=== PATIENT | male | born 1985 ===

== ENCOUNTER 2021-05-13 17:05 | Emergency (ER) | payer SELFPAY ==
--- NOTE | 2021-05-13 17:30 | EDM.PDOC ---
<Grover Garner - Last Filed: 05/13/21 18:33> ED HPI GENERAL MEDICAL PROBLEM - General Chief Complaint: Chest Pain Stated Complaint: 96.0*, CHEST PAINS, FEVER Time Seen by Provider: 05/13/21 17:30 Source of Information: Reports: Patient, RN, RN Notes Reviewed History Limitations: Reports: No Limitations - History of Present Illness INITIAL COMMENTS - FREE TEXT/NARRATIVE: Pt presents to ER from home by POV with c/o onset of sharp upper left chest pain at 1430HRS today. Admits to about 3 days of not feeling well with fever sensation, fatigue, and a headache. Pt states he was exposed to COVID about 3 weeks ago, but isn't sure if he has been exposed since then. Denies shortness of breath, abdominal pain, or diarrhea. Denies Hx of CAD/CA/angina, DM, asthma, or compromised immune system. Onset: Today, Sudden Onset Date: 05/13/21 Onset Time: 14:30 Duration: Constant, Waxing/Waning Location: Reports: Chest Quality: Reports: Sharp Severity: Moderate Improves with: Reports: None Worsens with: Reports: None Context: Reports: Sick Contact Associated Symptoms: Reports: No Other Symptoms Left Chest Pain Score (Numeric/FACES): 5 - Related Data Allergies Allergy/AdvReac Type Severity Reaction Status Date / Time No Known Allergies Allergy Verified 05/13/21 17:45 Home Meds: Home Meds . [No Known Home Meds] 05/13/21 [History] Past Medical History HEENT History: Reports: Impaired Vision Endocrine/Metabolic History: Reports: Obesity/BMI 30+ Social & Family History - Family History Family Medical History: No Pertinent Family History Cardiac: Reports: High Cholesterol (Father), Hypertension (Father) - Tobacco Use Tobacco Use Status *Q: Never Tobacco User - Living Situation & Occupation Living situation: Reports: with Family ED ROS GENERAL - Review of Systems Review Of Systems: Comprehensive ROS is negative, except as noted in HPI. ED EXAM, GENERAL - Physical Exam Exam: See Below Exam Limited By: No Limitations General Appearance: Alert, WD/WN, No Apparent Distress, Obese Eye Exam: Bilateral Eye: Normal Inspection Ears: Normal External Exam, Hearing Grossly Normal Nose: Normal Inspection, Normal Mucosa, No Blood Throat/Mouth: Normal Inspection, Normal Lips, Normal Teeth, Normal Gums, Normal Oropharynx, Normal Voice, No Airway Compromise Head: Atraumatic, Normocephalic Neck: Normal Inspection, Supple, Non-Tender, Full Range of Motion. No: Lymphadenopathy (L), Lymphadenopathy (R) Respiratory/Chest: No Respiratory Distress, Lungs Clear, Normal Breath Sounds, No Accessory Muscle Use, Chest Non-Tender Cardiovascular: Normal Peripheral Pulses, Regular Rate, Rhythm, No Edema, No Murmur, Tachycardia GI/Abdominal: Normal Bowel Sounds, Soft, Non-Tender, Other (Benign obese abdomen) Back Exam: Normal Inspection, Full Range of Motion Extremities: Normal Inspection, Non-Tender, No Pedal Edema, Normal Capillary Refill Neurological: Alert, Oriented, CN II-XII Intact, Normal Cognition, No Motor/Sensory Deficits Psychiatric: Normal Affect, Anxious Skin Exam: Warm, Intact, Normal Color, No Rash, Diaphoretic #1 Interpretation EKG Date: 05/13/21 Time: 17:28 Rhythm: Other (SR) Rate (Beats/Min): 99 [place]: Normal P-Wave: Present QRS: Normal ST-T: Normal QT: Normal Comparison: NA - No Prior EKG Course - Re-Assessments/Exams Free Text/Narrative Re-Assessment/Exam: 05/13/21 19:00 Care of pt transferred to Michell BARROW at shift change. Departure - Departure Disposition: Home, Self-Care 01 Clinical Impression: COVID-19 virus infection Instructions: COVID-19: How to Protect Yourself and Others - CDC, COVID-19: What to Do If You Are Sick- CDC (09/20/2020) Forms: ED Department Discharge Additional Instructions: encourage fluids tylenol 500mg every 4 hours as needed for fever/discomfort humidifier rest quarantine robitussin or muccinex type product per label instruction for cough follow up if severe difficulty breathing good handwashing <Michell Stephens - Last Filed: 05/13/21 19:54> Course - Vital Signs Last Recorded V/S: Last Vital Signs Temp 97.8 F 05/13/21 17:29 Pulse 106 H 05/13/21 17:29 Resp 22 H 05/13/21 17:29 BP 151/97 H 05/13/21 17:29 Pulse Ox 95 05/13/21 17:29 - Orders/Labs/Meds Orders: Active Orders 24 hr Category Date Time Status Peripheral IV Care [RC] . DIRECTED Care 05/13/21 17:40 Active CULTURE BLOOD [BC] Stat Lab 05/13/21 18:20 Received CULTURE BLOOD [BC] Stat Lab 05/13/21 18:25 Received Sodium Chloride 0.9% [Saline Flush] Med 05/13/21 17:40 Active 10 ml FLUSH ASDIRECTED PRN Blood Culture x2 Reflex Set [OM.PC] Stat Oth 05/13/21 17:38 Ordered Peripheral IV Insertion Adult [OM.PC] Stat Ot 05/13/21 17:39 Ordered Medication Orders Sodium Chloride (Sodium Chloride 0.9% 10 Ml Syringe) 10 ml FLUSH ASDIRECTED PRN PRN Reason: Keep Vein Open Last Admin: 05/13/21 17:59 Dose: 10 ml Documented by: PADMAJA Labs: Laboratory Tests 05/13/21 05/13/21 05/13/21 Range/Units 17:27 17:27 17:27 WBC 3.8 L (5.0-10.0) 10^3/uL RBC 5.30 (4.6-6.2) 10^6/uL Hgb 14.7 (14.0-18.0) g/dL Hct 41.9 (40.0-54.0) % MCV 79.1 L (80-100) fL MCH 27.7 (27.0-34.0) pg MCHC 35.1 H (33.0-35.0) g/dL Plt Count 120 L (150-450) 10^3/uL Neut % (Auto) 63.0 (42.2-75.2) % Lymph % (Auto) 30.6 (20.5-50.1) % [place] % (Auto) 6.1 (2-8) % Eos % (Auto) 0.3 L (1.0-3.0) % Baso % (Auto) 0.0 (0.0-1.0) % PT (9.0-12.0) SEC INR (0.9-1.2) APTT (22.0-34.0) SEC D-Dimer, Quantitative 580 H (0-400) ng/mL Sodium 130 L (136-145) mmol/L Potassium 3.3 L (3.5-5.1) mmol/L Chloride 92 L (98-107) mmol/L Carbon Dioxide 29 (21-32) mmol/L Anion Gap 12.3 (7-13) mEq/L BUN 12 (7-18) mg/dL Creatinine 1.04 (0.70-1.30) mg/dL Est Cr Clr Drug Dosing 90.32 mL/min Estimated GFR (MDRD) > 60 BUN/Creatinine Ratio 11.5 (No establ ref range) Glucose 119 H (70-99) mg/dL Lactic Acid (0.4-2.0) mmol/L Calcium 7.8 L (8.5-10.1) mg/dL Ferritin (26-388) mg/mL Total Bilirubin 0.3 (0.2-1.0) mg/dL AST 44 H (15-37) U/L ALT 41 (16-63) U/L Alkaline Phosphatase 73 (46-116) U/L Troponin I High Sens 16 (<=76) pg/mL C-Reactive Protein 10.2 H (0.0-0.9) mg/dL Total Protein 7.9 (6.4-8.2) g/dL Albumin 3.5 (3.4-5.0) g/dL Globulin 4.4 Albumin/Globulin Ratio 0.8 Influenza Type A RNA (NEGATIVE) Influenza Type B RNA (NEGATIVE) SARS-CoV-2 RNA (BETTY) (NEGATIVE) 05/13/21 05/13/21 05/13/21 Range/Units 17:27 17:27 17:27 WBC (5.0-10.0) 10^3/uL RBC (4.6-6.2) 10^6/uL Hgb (14.0-18.0) g/dL Hct (40.0-54.0) % MCV (80-100) fL MCH (27.0-34.0) pg MCHC (33.0-35.0) g/dL Plt Count (150-450) 10^3/uL Neut % (Auto) (42.2-75.2) % Lymph % (Auto) (20.5-50.1) % [place] % (Auto) (2-8) % Eos % (Auto) (1.0-3.0) % Baso % (Auto) (0.0-1.0) % PT 10.8 (9.0-12.0) SEC INR 1.1 (0.9-1.2) APTT 26.1 (22.0-34.0) SEC D-Dimer, Quantitative (0-400) ng/mL Sodium (136-145) mmol/L Potassium (3.5-5.1) mmol/L Chloride (98-107) mmol/L Carbon Dioxide (21-32) mmol/L Anion Gap (7-13) mEq/L BUN (7-18) mg/dL Creatinine (0.70-1.30) mg/dL Est Cr Clr Drug Dosing mL/min Estimated GFR (MDRD) BUN/Creatinine Ratio (No establ ref range) Glucose (70-99) mg/dL Lactic Acid 0.8 (0.4-2.0) mmol/L Calcium (8.5-10.1) mg/dL Ferritin 366 (26-388) mg/mL Total Bilirubin (0.2-1.0) mg/dL AST (15-37) U/L ALT (16-63) U/L Alkaline Phosphatase (46-116) U/L Troponin I High Sens (<=76) pg/mL C-Reactive Protein (0.0-0.9) mg/dL Total Protein (6.4-8.2) g/dL Albumin (3.4-5.0) g/dL Globulin Albumin/Globulin Ratio Influenza Type A RNA (NEGATIVE) Influenza Type B RNA (NEGATIVE) SARS-CoV-2 RNA (BETTY) (NEGATIVE) 05/13/21 Range/Units 17:35 WBC (5.0-10.0) 10^3/uL RBC (4.6-6.2) 10^6/uL Hgb (14.0-18.0) g/dL Hct (40.0-54.0) % MCV (80-100) fL MCH (27.0-34.0) pg MCHC (33.0-35.0) g/dL Plt Count (150-450) 10^3/uL Neut % (Auto) (42.2-75.2) % Lymph % (Auto) (20.5-50.1) % [place] % (Auto) (2-8) % Eos % (Auto) (1.0-3.0) % Baso % (Auto) (0.0-1.0) % PT (9.0-12.0) SEC INR (0.9-1.2) APTT (22.0-34.0) SEC D-Dimer, Quantitative (0-400) ng/mL Sodium (136-145) mmol/L Potassium (3.5-5.1) mmol/L Chloride (98-107) mmol/L Carbon Dioxide (21-32) mmol/L Anion Gap (7-13) mEq/L BUN (7-18) mg/dL Creatinine (0.70-1.30) mg/dL Est Cr Clr Drug Dosing mL/min Estimated GFR (MDRD) BUN/Creatinine Ratio (No establ ref range) Glucose (70-99) mg/dL Lactic Acid (0.4-2.0) mmol/L Calcium (8.5-10.1) mg/dL Ferritin (26-388) mg/mL Total Bilirubin (0.2-1.0) mg/dL AST (15-37) U/L ALT (16-63) U/L Alkaline Phosphatase (46-116) U/L Troponin I High Sens (<=76) pg/mL C-Reactive Protein (0.0-0.9) mg/dL Total Protein (6.4-8.2) g/dL Albumin (3.4-5.0) g/dL Globulin Albumin/Globulin Ratio Influenza Type A RNA Negative (NEGATIVE) Influenza Type B RNA Negative (NEGATIVE) SARS-CoV-2 RNA (BETTY) Positive H (NEGATIVE) Meds: Medications Generic Name Dose Route Start Last Admin Trade Name Freq PRN Reason Stop Dose Admin Sodium Chloride 10 ml 05/13/21 17:40 05/13/21 17:59 Sodium Chloride 0.9% 10 Ml Syringe FLUSH 10 ml ASDIRECTED PRN Administration Keep Vein Open - Re-Assessments/Exams Free Text/Narrative Re-Assessment/Exam: 05/13/21 19:54 Discharge instructions reviewed with patient and sister. Departure - Departure Time of Disposition: 19:44 Condition: Good Sepsis Event Note (ED) - Focused Exam Vital Signs: Vital Signs Temp Pulse Resp BP Pulse Ox 05/13/21 17:29 97.8 F 106 H 22 H 151/97 H 95
[2021-05-13] MEDS ORDERED: Sodium Chloride 0.9% 10 ML Syringe FLUSH PRN (17:40)
[2021-05-13 18:03] LABS: PTT,PARTIAL THROMBOPLSTIN TIME 26.1 SEC (22.0-34.0)
[2021-05-13 18:13] LABS: ANION GAP 12.3 mEq/L (7-13); CHLORIDE,CL 92 mmol/L (98-107); SODIUM,NA 130 mmol/L (136-145)
[2021-05-13 18:28] LABS: CORONAVIRUS COVID-19 NAA POSITIVE (NEGATIVE)
--- NOTE | 2021-05-13 19:33 | CR ---
PROCEDURE INFORMATION: Exam: XR Chest Exam date and time: 05/13/2021 7:01 PM Age: 35 years old Clinical indication: Cough; Additional info: Covid infection, chest pain TECHNIQUE: Imaging protocol: XR of the chest. Views: 1 view. COMPARISON: No relevant prior studies available. FINDINGS: Lungs: Unremarkable. No consolidation. Pleural spaces: Unremarkable. No pleural effusion. No pneumothorax. Heart/Mediastinum: Unremarkable. No cardiomegaly. Bones/joints: Unremarkable. IMPRESSION: No acute findings.
== END 2021-05-13 20:02 | disposition home or self-care (01) ==
LOC: DL.ED 17:05
DX: U07.1 COVID-19 (principal); E66.9 Obesity, unspecified; Z68.38 Body mass index [BMI] 38.0-38.9, adult
CPT/HCPCS: 0240U; 36415; 71045; 80053; 82728; 83605; 84484; 85025; 85379; 85610; 85730; 86140; 87040; 93005; 99285

== ENCOUNTER 2021-06-07 13:31 | Inpatient (IN) | payer BC ==
--- NOTE | 2021-06-07 15:32 | EDM.PDOC ---
ED HPI GENERAL MEDICAL PROBLEM - General Chief Complaint: Lower Extremity Injury/Pain Stated Complaint: SWOLLEN CALF Time Seen by Provider: 06/07/21 15:32 Source of Information: Reports: Patient, Old Records, RN, RN Notes Reviewed History Limitations: Reports: No Limitations - History of Present Illness INITIAL COMMENTS - FREE TEXT/NARRATIVE: Pt presents to ER by POV with c/o swelling and tenderness to the left lower leg that began about one week ago. Pt states that a friend of his looked at it and told him could have a blood clot that could be dangerous. Pt has Hx of Dev. D elay and is very anxious about the possibility of having a dangerous condition. He denies injury. 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 He had COVID diagnosed on 05/13/21, but recovered without any lasting symptoms. He is aware that COVID is related to blood clots, and that concerns him. He denies chest pain, shortness of breath, cough, or hemoptysis. Denies any prior Hx of DVT/PE. He is unaware of any family history of blood clots or clotting disorder. Onset: Gradual Duration: Week(s): (1), Constant Location: Reports: Lower Extremity, Left Quality: Reports: Ache, Pressure Severity: Moderate Improves with: Reports: None Worsens with: Reports: Other (Standing/walking/weight bearing) Associated Symptoms: Reports: No Other Symptoms - Related Data Allergies Allergy/AdvReac Type Severity Reaction Status Date / Time No Known Allergies Allergy Verified 06/07/21 15:37 Home Meds: Home Meds . [No Known Home Meds] 05/13/21 [History] Past Medical History HEENT History: Reports: Impaired Vision Cardiovascular History: Reports: None Respiratory History: Reports: None Gastrointestinal History: Reports: None Genitourinary History: Reports: None Musculoskeletal History: Reports: None Neurological History: Reports: None Psychiatric History: Reports: Anxiety Endocrine/Metabolic History: Reports: Obesity/BMI 30+ Hematologic History: Reports: None Immunologic History: Reports: None Oncologic (Cancer) History: Reports: None Dermatologic History: Reports: None - Infectious Disease History Infectious Disease History: Reports: Novel Coronavirus (May 2021) - Past Surgical History Head Surgeries/Procedures: Reports: None Social & Family History - Family History Family Medical History: No Pertinent Family History Cardiac: Reports: High Cholesterol (Father), Hypertension (Father) - Tobacco Use Tobacco Use Status *Q: Never Tobacco User - Caffeine Use Caffeine Use: Reports: Coffee, Energy Drinks, Soda - Alcohol Use Alcohol Use History: No - Recreational Drug Use Recreational Drug Use: No - Living Situation & Occupation Living situation: Reports: Single, with Family Occupation: Employed Review of Systems - Review of Systems Review Of Systems: Comprehensive ROS is negative, except as noted in HPI. ED EXAM, GENERAL - Physical Exam Exam: See Below Exam Limited By: No Limitations General Appearance: Alert, WD/WN, No Apparent Distress, Anxious Nose: Normal Inspection, No Blood Throat/Mouth: Normal Lips, Normal Voice, No Airway Compromise Head: Atraumatic, Normocephalic Neck: Normal Inspection Respiratory/Chest: No Respiratory Distress, Lungs Clear, Normal Breath Sounds, No Accessory Muscle Use, Chest Non-Tender Cardiovascular: Normal Peripheral Pulses, Regular Rate, Rhythm, Tachycardia GI/Abdominal: Normal Bowel Sounds, Soft, Non-Tender Back Exam: Normal Inspection Extremities: Normal Range of Motion, Normal Capillary Refill, Pedal Edema (Mild at left foot only.), Dallin's Sign (Positive on left.), Increased Warmth (Left lower leg from ankle to knee). No: Joint Swelling, Arm Pain, Mottled, Pallor, Redness Neurological: Alert, Oriented, No Motor/Sensory Deficits Psychiatric: Anxious Skin Exam: Warm, Dry, Intact, Normal Color, No Rash #1 Interpretation EKG Date: 06/07/21 Time: 17:18 Rhythm: Other (Sinus Tach) Rate (Beats/Min): 113 [place]: Normal P-Wave: Present QRS: Normal ST-T: Normal QT: Normal Comparison: NA - No Prior EKG Course - Vital Signs Last Recorded V/S: Last Vital Signs Temp 97.8 F 06/07/21 15:38 Pulse 123 H 06/07/21 16:11 Resp 24 H 06/07/21 15:38 BP 150/92 H 06/07/21 16:11 Pulse Ox 95 06/07/21 16:11 - Orders/Labs/Meds Orders: Active Orders 24 hr Category Date Time Status Admission Diagnosis [ADT] Routine ADT 06/07/21 17:15 Ordered Admission Status [Patient Status] [ADT] Routine ADT 06/07/21 17:15 Active EKG 12 Lead [EKG Documentation Completion] [RC] STAT Care 06/07/21 17:15 Active Peripheral IV Care [RC] . DIRECTED Care 06/07/21 16:03 Active Heparin Sodium/0.45% NaCl [Heparin 25,000 Units in 1/2 Med 06/07/21 17:00 Active NS 500 ML] 25,000 units in 500 ml IV TITRATE Sodium Chloride 0.9% [Saline Flush] Med 06/07/21 16:03 Active 10 ml FLUSH ASDIRECTED PRN Peripheral IV Insertion Adult [OM.PC] Stat Oth 06/07/21 16:03 Ordered Medication Orders Heparin Sodium/Sodium Chloride (Heparin 25,000 Units In 1/2 Ns 500 Ml) 25,000 units in 500 mls @ 41.803 mls/hr IV TITRATE JAMES; Protocol Sodium Chloride (Sodium Chloride 0.9% 10 Ml Syringe) 10 ml FLUSH ASDIRECTED PRN PRN Reason: Keep Vein Open Labs: Laboratory Tests 06/07/21 06/07/21 06/07/21 Range/Units 15:42 15:42 15:42 WBC 5.9 (5.0-10.0) 10^3/uL RBC 5.03 (4.6-6.2) 10^6/uL Hgb 13.8 L (14.0-18.0) g/dL Hct 41.8 (40.0-54.0) % MCV 83.1 D (80-100) fL MCH 27.4 (27.0-34.0) pg MCHC 33.0 (33.0-35.0) g/dL Plt Count 350 D (150-450) 10^3/uL Neut % (Auto) 63.6 (42.2-75.2) % Lymph % (Auto) 25.2 (20.5-50.1) % [place] % (Auto) 9.8 H (2-8) % Eos % (Auto) 0.7 L (1.0-3.0) % Baso % (Auto) 0.7 (0.0-1.0) % PT 9.9 (9.0-12.0) SEC INR 1.0 (0.9-1.2) APTT 22.3 (22.0-34.0) SEC Sodium 136 (136-145) mmol/L Potassium 4.0 (3.5-5.1) mmol/L Chloride 98 (98-107) mmol/L Carbon Dioxide 29 (21-32) mmol/L Anion Gap 13.0 (7-13) mEq/L BUN 15 (7-18) mg/dL Creatinine 0.90 (0.70-1.30) mg/dL Est Cr Clr Drug Dosing 104.36 mL/min Estimated GFR (MDRD) > 60 BUN/Creatinine Ratio 16.7 (No establ ref range) Glucose 114 H (70-99) mg/dL Calcium 8.9 (8.5-10.1) mg/dL Total Bilirubin 0.3 (0.2-1.0) mg/dL AST 45 H (15-37) U/L ALT 82 H (16-63) U/L Alkaline Phosphatase 112 (46-116) U/L C-Reactive Protein 1.8 H (0.0-0.9) mg/dL Total Protein 8.6 H (6.4-8.2) g/dL Albumin 3.5 (3.4-5.0) g/dL Globulin 5.1 Albumin/Globulin Ratio 0.7 Meds: Medications Generic Name Dose Route Start Last Admin Trade Name Freq PRN Reason Stop Dose Admin Heparin Sodium/Sodium Chloride 25,000 units in 500 mls @ 41.803 mls/hr 06/07/21 17:00 Heparin 25,000 Units In 1/2 Ns 500 Ml IV TITRATE JAMES Protocol 18 UNITS/KG/HR Sodium Chloride 10 ml 06/07/21 16:03 Sodium Chloride 0.9% 10 Ml Syringe FLUSH ASDIRECTED PRN Keep Vein Open Discontinued Medications Generic Name Dose Route Start Last Admin Trade Name Freq PRN Reason Stop Dose Admin Heparin Sodium (Porcine) 80 units 06/07/21 16:57 Heparin Sodium 5,000 Units/Ml Vial IVPUSH 06/07/21 16:58 .BOLUS ONE Protocol Iopamidol 100 ml 06/07/21 16:03 06/07/21 16:39 Iopamidol 755 Mg/Ml 100 Ml Bottle IVPUSH 06/07/21 16:04 98 ml ONETIME ONE Administration - Radiology Interpretation Free Text/Narrative:: US Left Lower Ext. Venous Doppler: Extensive deep vein thrombosis left lower extremity from left ankle to groin. CT Chest PE Study: moderately heavy B/L clot burden with some B/L smaller PEs as well, see Rad. report. Departure - Departure Time of Disposition: 17:26 (admitted to Dr. Martini) Disposition: Admitted As Inpatient 67 Condition: Fair Clinical Impression: Pulmonary embolism Qualifiers: Pulmonary embolism type: multiple subsegmental (without acute cor pulmonale) Qualified Code(s): I26.94 - Multiple subsegmental pulmonary emboli without acute cor pulmonale Deep vein thrombosis, lower left extremity Qualifiers: Affected thrombotic vein of extremity: unspecified vein of extremity Chronicity: acute Qualified Code(s): I82.402 - Acute embolism and thrombosis of unspecified deep veins of left lower extremity - Discharge Information *PRESCRIPTION DRUG MONITORING PROGRAM REVIEWED*: Not Applicable *COPY OF PRESCRIPTION DRUG MONITORING REPORT IN PATIENT GISELE: Not Applicable Forms: ED Department Discharge Sepsis Event Note (ED) - Focused Exam Vital Signs: Vital Signs Temp Pulse Resp BP Pulse Ox 06/07/21 16:11 123 H 150/92 H 95 06/07/21 15:38 97.8 F 128 H 24 H 133/102 H 98 - My Orders Last 24 Hours: My Active Orders 06/07/21 16:03 Peripheral IV Care [RC] . DIRECTED Sodium Chloride 0.9% [Saline Flush] 10 ml FLUSH ASDIRECTED PRN Peripheral IV Insertion Adult [OM.PC] Stat 06/07/21 17:00 Heparin Sodium/0.45% NaCl [Heparin 25,000 Units in 1/2 NS 500 ML] 25,000 units in 500 ml IV TITRATE 06/07/21 17:15 Admission Diagnosis [ADT] Routine Admission Status [Patient Status] [ADT] Routine EKG 12 Lead [EKG Documentation Completion] [RC] STAT - Assessment/Plan Last 24 Hours: My Active Orders 06/07/21 16:03 Peripheral IV Care [RC] . DIRECTED Sodium Chloride 0.9% [Saline Flush] 10 ml FLUSH ASDIRECTED PRN Peripheral IV Insertion Adult [OM.PC] Stat 06/07/21 17:00 Heparin Sodium/0.45% NaCl [Heparin 25,000 Units in 1/2 NS 500 ML] 25,000 units in 500 ml IV TITRATE 06/07/21 17:15 Admission Diagnosis [ADT] Routine Admission Status [Patient Status] [ADT] Routine EKG 12 Lead [EKG Documentation Completion] [RC] STAT
[2021-06-07] MEDS ORDERED: Iopamidol 755 Mg/ML 100 ML Bottle IVPUSH ONE (16:03)
[2021-06-07] MEDS ORDERED: Sodium Chloride 0.9% 10 ML Syringe FLUSH PRN ×2 (16:03→18:12)
[2021-06-07 16:07] LABS: CHLORIDE,CL 98 mmol/L (98-107); SODIUM,NA 136 mmol/L (136-145)
[2021-06-07 16:12] LABS: PTT,PARTIAL THROMBOPLSTIN TIME 22.3 SEC (22.0-34.0)
--- NOTE | 2021-06-07 16:35 | US ---
EXAMINATION: Venous Doppler Lwr Ext Lt SEX: Male AGE: 35 years CLINICAL HISTORY: 35-year-old male with swelling and pain left lower extremity (obese patient COVID + month ago). Interpretation: Abnormal. Extensive intraluminal thrombus identified in the deep venous circulation from the left groin down to the calf (entire left leg). Abnormal compression and no augmentation of venous waveforms demonstrated in the left common femoral, superficial femoral of the thigh, popliteal vein or posterior tibial veins of the left lower extremity. No popliteal or Santiago's cyst. No calf hematoma demonstrated. CONCLUSION: Extensive deep vein thrombosis (DVT) left lower extremity.
[2021-06-07] MEDS ORDERED: Heparin Sodium 5,000 Units/ML Vial IVPUSH ONE (16:57)
--- NOTE | 2021-06-07 17:20 | CT ---
EXAMINATION: Chest w Cont SEX: Male AGE: 35 years CLINICAL HISTORY: 45-year-old 256 pound male with abnormal left lower extremity sonogram (DVT) of swollen left leg who had tested positive (COVID +) on 13 May 2021. (Cough and chest pain). PE study. Scan technique: Volume acquisition of data from the chest (bony thorax, lungs and mediastinum) obtained during the intravenous administration of 98 cc nonionic Isovue 370 contrast at 5 cc/s via injector while patient was lying supine on the Siemens multislice scanner [place], [place]. All data archived in the PACS system for storage, reformatting axial/sagittal/coronal planes and study. Note: motion ("patient talked/moved throughout exam"). Interpretation: ABNORMAL. 1. *Intraluminal filling defects (thrombus) clearly identified proximally in the main pulmonary artery segments extending into the second tier of pulmonary arteries, bilaterally. 2. Peripheral pleural-based wedge shaped infarcts confirmed in both lung bases. 3. No peripheral "groundglass" interstitial lung densities. 4. No atelectasis or collapse, alveolar infiltrates with air bronchograms, or pleural effusions. 5. Normal cardiac silhouette (size and configuration). No pericardial effusion. Upper abdominal viscera unremarkable. 6. Multilevel disc disease and hypertrophic arthritic changes T spine (motion artifact obscuring upper sternum/T-spine).
[2021-06-07] MEDS: Heparin Sodium/0.45% NaCl 25,000 UNITS/500 ML BAG IV SCH (17:47)
[2021-06-07] MEDS ORDERED: oxyCODONE 5 MG Tab PO PRN (18:12)
[2021-06-07] MEDS ORDERED: Acetaminophen 325 MG Tab PO PRN (18:12)
[2021-06-07] MEDS ORDERED: Temazepam 15 MG Cap PO PRN (18:12)
[2021-06-07] MEDS ORDERED: Morphine 2 MG/ML SYRINGE IVPUSH PRN (18:12)
[2021-06-07] MEDS ORDERED: Ondansetron 4 MG/2 ML SDV IVPUSH PRN (18:12)
[2021-06-07] MEDS ORDERED: Heparin Sodium/0.45% NaCl 25,000 UNITS/500 ML BAG IV SCH (18:30)
[2021-06-08] MEDS ORDERED: Heparin Sodium 5,000 Units/ML Vial IVPUSH ONE ×3 (01:08→16:32)
--- NOTE | 2021-06-08 04:12 | HP ---
CHIEF COMPLAINT: Lower extremity pain, swollen calf, left leg. HISTORY OF PRESENT ILLNESS: The patient is a 35-year-old man, who works in a grocery store, presented to the emergency room due to concern of swelling and pain in the left lower extremity for unknown amount of time. The patient was told by a friend that he may have a blood clot, and he needs to come to emergency room. He has developmental delay, and he came to emergency room where he had workup done. The patient does not have any shortness of breath, chest pain. No difficulty breathing. He was diagnosed with COVID-19 on 05/13, almost a month ago. PAST MEDICAL HISTORY: He has developmental delay and obesity. He had novel coronavirus in 05/2021. PAST SURGICAL HISTORY: None. FAMILY HISTORY: Hyperlipidemia in Father and hypertension in Father. SOCIAL HISTORY: Tobacco use, he never smoked. No caffeine use, he never drinks caffeine. Alcohol use, none. He is living with his family, and he is employed. No recreational drug use. REVIEW OF SYSTEMS: 12-point review of systems is negative except as in history of present illness. PHYSICAL EXAMINATION: Vital Signs: This admission, his temperature 97.8, pulse 128, blood pressure 133/102, respiratory rate of 24, and oxygen saturation 98% on room air. HEENT: His head is atraumatic, normocephalic. Pupils equally reactive to light. NECK: Supple. No thyromegaly. No lymphadenopathy. HEART: S1, S2. Regular rhythm and rate, mildly tachycardic. ABDOMEN: Soft, nontender. Positive bowel sounds. EXTREMITIES: There is swelling of left lower extremity from ankle to the knee level. NEUROLOGIC: The patient is alert and oriented x3. There are no gross focal neurologic deficits. DIAGNOSTIC STUDIES: Venous Doppler testing done in emergency room of left lower extremity shows extensive intraluminal thrombus identified in the deep venous circulation from the left groin down to the calf. Entire left leg, abnormal compression and augmentation of venous waveform demonstrated in the left common femoral, superficial femoral of the thigh, popliteal vein, all posterior tibial veins of the left lower extremity. No popliteal or Santiago cyst. No occult hematoma demonstrated. Conclusion: Extensive deep vein thrombosis, left lower extremity. CT of the chest was done, which shows an intraluminal filling defect. Thrombus clearly identified proximally in the main pulmonary artery segments extending into the left of pulmonary artery bilaterally. Peripheral pleural based, wedged shaped infarct confirmed in both lung bases. No peripheral ground-glass interstitial lung densities. No atelectasis or collapse, alveolar infiltrates, or air bronchogram or pleural effusions. Normal cardiac silhouette, size, and configuration. No pericardial effusion. Upper abdominal viscera unremarkable. Multilevel disk disease and hypertrophic arthritic changes to spine. Motion artifact obscuring upper spine. ASSESSMENT AND PLAN: A 35-year-old man who presents to emergency room with complaints of swelling of the left lower extremity. The venous Doppler showed extensive thrombus through the entire length of the left lower extremity. Also CT pulmonary angiogram remarkable for blood clots proximally in the main pulmonary artery segments, extended to the second of pulmonary artery bilaterally. Pulmonary embolus bilaterally and deep venous thrombosis, left lower extremity with a high burden of blood clots. The patient will be admitted to telemetry with monitor and storage bin tender, and he was started on heparin drip 18 units/kg per hour, and we will titrate heparin drip as per protocol for deep venous thrombosis, and we will monitor his PTT according to the protocol. For gastrointestinal prophylaxis, the patient will be given Protonix 40 mg p.o. daily. [facility] /[id number]
[2021-06-08] MEDS: Pantoprazole 40 MG Tab.CR PO SCH (06:30)
[2021-06-08 07:58] LABS: ANION GAP 12.3 mEq/L (7-13); CHLORIDE,CL 99 mmol/L (98-107); SODIUM,NA 135 mmol/L (136-145)
[2021-06-08] MEDS: Multivitamin Tab PO SCH (09:17)
[2021-06-08] MEDS: Heparin Sodium/0.45% NaCl 25,000 UNITS/500 ML BAG IV SCH (12:14)
--- NOTE | 2021-06-08 17:44 | PN ---
DATE: 06/08/2021 HISTORY OF PRESENT ILLNESS: The patient was seen today. His heart rate improved to 108 and he does not have any active complaints. He does not complain of any pain and no chest pain. No significant shortness of breath. The patient is impatient to go home. His mom is present with him in the room and the patient currently is on heparin drip. LABORATORY DATA: APTT at 12 noon was 32.6. Today, sodium 135, potassium 4.3, chloride 99, CO2 of 28, anion gap 12.3, BUN 13, creatinine 0.85, and GFR more than 60. Glucose 112, calcium 8.8. AST done yesterday was 45 and ALT 82, C- reactive protein was 1.8 and it was done on 06/07/2021. ASSESSMENT AND PLAN: Pulmonary embolus bilaterally with wedge pulmonary infarct and deep vein thrombosis of left lower extremity. The patient to continue with heparin drip until he is clinically stable with a normal heart rate and expected to continue heparin drip for 2 to 3 days for gastrointestinal prophylaxis, and then the patient to be transitioned to new anticoagulation medication for gastrointestinal prophylaxis. The patient will be given Protonix 40 mg p.o. daily and Ativan 1 mg p.o. q.6 hours p.r.n. as needed for anxiety. PHYSICAL EXAMINATION: Vital Signs: Today, temperature 96.6, pulse rate 100, blood pressure 171/86, respiratory rate 20, and oxygen saturation 97%. HEENT: His head is atraumatic, normocephalic. Pupils equally reactive to light. Neck: Supple. No thyromegaly. No lymphadenopathy. Heart: S1, S2. Regular rhythm and rate. Lungs: Clear to auscultation bilaterally. Abdomen: Soft, nontender. Positive bowel sounds. Extremities: Left leg is significantly more swollen than the right leg. This is at the level of the left calf and left thigh. [facility] /[id number]
[2021-06-08] MEDS: Apixaban 5 MG Tab PO SCH (23:09)
[2021-06-09] MEDS: Pantoprazole 40 MG Tab.CR PO SCH (06:04)
[2021-06-09] MEDS: Multivitamin Tab PO SCH (08:31)
--- NOTE | 2021-06-09 10:01 | PCM.DCSUM1 ---
Discharge Summary - Hospital Course Brief History: see below Diagnosis: Stroke: No Modified [place] Scale: No Signif.Disability Despite Sympt.Able to Carry Out Usual Act./Duties Modified [place] Scale Score: 1 - Discharge Data Discharge Date: 06/09/21 Discharge Disposition: Home, Self-Care 01 Condition: Good - Referral to Home Health Primary Care Physician: PCP None - Patient Instructions Diet: Usual Diet as Tolerated Activity: Elevate Extremity (elevate left leg when at rest) Driving: May Drive Today Showering/Bathing: May Shower Other/Special Instructions: place thigh high compression sock on left leg during the day and take off at night. start on monday 06/11 - Discharge Plan *PRESCRIPTION DRUG MONITORING PROGRAM REVIEWED*: Not Applicable *COPY OF PRESCRIPTION DRUG MONITORING REPORT IN PATIENT GISE[place]: Not Applicable Home Medications: Home Meds Multivit-Minerals/FA/Lycopene [One Daily Men's Health Tablet] 1 each PO DAILY 06/07/21 [History] Forms: ED Department Discharge Referrals: Mai San, STRUCTURAL ANALYSIS ENGINEER [Nurse Practitioner] - - Discharge Summary/Plan Comment DC Time >30 min.: Yes Total # of Minutes for Discharge Time: 45 Discharge Summary/Plan Comment: Alon Monaco is a 35 year old man with PMH most significant for mild cognitive delay and recent covid 19 who presented to the ED with LLE swelling and acute onset shortness of breath with pleuritic chest pain. While in the ED he underwent CTA chest which revealed an intraluminal filling defect in bilateral proximal artery segments extending into second tier of pulmonary arteries bilaterally. also noted periheral pleural based wedge shaped infarcts in bilateral bases. Doppler of LLE showed an extensive thrombus from the left groin to the left calf including left commonfemoral, superficial femoral to thigh, popliteal and posterior tibial. He was started on a heparin gtt and was admitted to the hospital for further evaluation and treatment. inpatient echo wasn't available. pt did not require supplemental oxygen. transfer to other facility not available. He required no supplemental oxygen during his hospital stay. he was transitioned to PO eliquis after remaining afebrile and hemodynamically stable. He was thought to be medically stable for discharge on the morning of 06/09/21. Pt friend was at bedside and mom on phone to discuss discharge plan, outpatient echo, PO eliquis with recommendation for minimum 3 months but likely max 6 months given clot burden. all questions and concerns addressed at bedside prior to discharge. - General Info Date of Service: 06/09/21 Functional Status: Reports: Pain Controlled - Review of Systems General: Reports: No Symptoms HEENT: Reports: No Symptoms Pulmonary: Reports: Pleuritic Chest Pain (mild on deep inspiration) Cardiovascular: Reports: No Symptoms Gastrointestinal: Reports: No Symptoms Genitourinary: Reports: No Symptoms Musculoskeletal: Reports: Other (mild left leg swelling) Skin: Reports: No Symptoms Neurological: Reports: No Symptoms Psychiatric: Reports: No Symptoms - Patient Data Vitals - Most Recent: Last Vital Signs Temp 97.1 F 06/09/21 07:45 Pulse 98 06/09/21 07:45 Resp 20 06/09/21 07:45 BP 141/77 H 06/09/21 07:45 Pulse Ox 96 06/09/21 07:45 Weight - Most Recent: 218 lb 11.2 oz I&O - Last 24 hours: Intake & Output 06/08/21 06/09/21 06/09/21 22:59 06:59 14:59 Intake Total 840 300 Balance 840 300 Lab Results - Last 24 hrs: Laboratory Results - last 24 hr 06/08/21 Range/Units 14:00 APTT 32.6 (22.0-34.0) SEC Med Orders - Current: Current Medications Acetaminophen (Acetaminophen 325 Mg Tab) 650 mg PO Q4H PRN PRN Reason: Pain (Mild 1-3)/fever Apixaban (Apixaban 5 Mg Tab) 10 mg PO BID@1100,2300 [facility] Last Admin: 06/08/21 23:09 Dose: 10 mg Documented by: Multivitamins/Minerals/Vitamin C (Multivitamin Tab) 1 tab PO DAILY [facility] Last Admin: 06/09/21 08:31 Dose: 1 tab Documented by: Ondansetron HCl (Ondansetron 4 Mg/2 Ml Sdv) 4 mg IVPUSH Q4H PRN PRN Reason: Nausea/Vomiting Oxycodone HCl (Oxycodone 5 Mg Tab) 5 mg PO Q4H PRN PRN Reason: Pain (moderate 4-6) Pantoprazole Sodium (Pantoprazole 40 Mg Tab.Cr) 40 mg PO ACBREAKFAST [facility] Last Admin: 06/09/21 06:04 Dose: 40 mg Documented by: Sodium Chloride (Sodium Chloride 0.9% 10 Ml Syringe) 10 ml FLUSH ASDIRECTED PRN PRN Reason: Keep Vein Open Sodium Chloride (Sodium Chloride 0.9% 10 Ml Syringe) 10 ml FLUSH ASDIRECTED PRN PRN Reason: Keep Vein Open Temazepam (Temazepam 15 Mg Cap) 15 mg PO BEDTIME PRN PRN Reason: Sleep Discontinued Medications Heparin Sodium (Porcine) (Heparin Sodium 5,000 Units/Ml Vial) 80 units IVPUSH .BOLUS ONE; Protocol Stop: 06/07/21 16:58 Last Admin: 06/07/21 17:47 Dose: 5,000 units Documented by: Heparin Sodium (Porcine) (Heparin Sodium 5,000 Units/Ml Vial) 2,500 units IVPUSH .BOLUS ONE Stop: 06/08/21 01:09 Last Admin: 06/08/21 01:22 Dose: 2,500 units Documented by: Heparin Sodium (Porcine) (Heparin Sodium 5,000 Units/Ml Vial) 2,500 units IVPUSH .BOLUS ONE Stop: 06/08/21 09:31 Last Admin: 06/08/21 09:51 Dose: 2,500 units Documented by: Heparin Sodium (Porcine) (Heparin Sodium 5,000 Units/Ml Vial) 2,500 units IVPUSH .BOLUS ONE Stop: 06/08/21 16:33 Last Admin: 06/08/21 16:39 Dose: 2,500 units Documented by: Heparin Sodium/Sodium Chloride (Heparin 25,000 Units In 1/2 Ns 500 Ml) 25,000 units in 500 mls @ 41.803 mls/hr IV TITRATE JAMES; Protocol Last Titration: 06/08/21 16:40 Dose: 19.2 units/kg/hr, 44.59 mls/hr Documented by: Heparin Sodium/Sodium Chloride (Heparin 25,000 Units In 1/2 Ns 500 Ml) 25,000 units in 500 mls @ 41.803 mls/hr IV TITRATE JAMES; Protocol Iopamidol (Iopamidol 755 Mg/Ml 100 Ml Bottle) 100 ml IVPUSH ONETIME ONE Stop: 06/07/21 16:04 Last Admin: 06/07/21 16:39 Dose: 98 ml Documented by: Morphine Sulfate (Morphine 2 Mg/Ml Syringe) 2 mg IVPUSH Q2H PRN PRN Reason: Pain (severe 7-10) - Exam Quality Assessment: Reports: DVT Prophylaxis. Denies: Supplemental Oxygen, Skin Breakdown General: Reports: Alert, Oriented, Cooperative, No Acute Distress HEENT: Reports: EOMI Lungs: Reports: Clear to Auscultation, Normal Respiratory Effort, Decreased Breath Sounds. Denies: Rales, Rhonchi, Wheezing Cardiovascular: Reports: Regular Rate, Regular Rhythm, No Murmurs. Denies: Tachycardia GI/Abdominal Exam: Soft (Male) Exam: Deferred Rectal (Males) Exam: Deferred Back Exam: Reports: Normal Inspection Extremities: Normal Range of Motion, Non-Tender, Pedal Edema (trace LLE edema. ). No: Slow Capillary Refill, Increased Warmth, Mottled, Pallor, Redness Skin: Reports: Warm, Dry Neurological: Reports: No New Focal Deficit Psy/Mental Status: Reports: Normal Affect, Normal Mood *Q Meaningful Use (DIS) - VTE *Q VTE Mechanical Contraindications *Q: Tx/Proc Refused byPt VTE Pharmacological Contraindications *Q: Tx/Proc Refused by Pt VTE Anticoagulation Contraindications: Tx/proc Refused by PT - Stroke *Q Aspirin Contraindications Stroke *Q: Patient Refusal Anticoagulation Contraindications Stroke *Q: TX/PROC Refused by PT Antithrombotic Contraindications Stroke *Q: TX/PROC Refused by PT Statin Contraindications Stroke *Q: TX/PROC Refused by PT Rehabilitation Assessment Contraindication *Q: Tx/proc refused by pt - AMI *Q Aspirin Contraindications AMI *Q: TX/PROC Refused by PT Statin Contraindications AMI *Q: TX/Proc Refused by PT
[2021-06-09] MEDS: Apixaban 5 MG Tab PO SCH (10:22)
== END 2021-06-09 11:03 | disposition home or self-care (01) | DRG 197 ==
LOC: DL.ED 13:31 → DL.MS 17:15
PROVIDERS: ADMIT Internal Medicine; ATTEND Internal Medicine
DX: I82.402 Acute embolism and thrombosis of unspecified deep veins of left lower extremity (principal); I26.94 Multiple subsegmental thrombotic pulmonary emboli without acute cor pulmonale; E66.9 Obesity, unspecified; F41.9 Anxiety disorder, unspecified; Z86.16 Personal history of COVID-19; Z28.82 Immunization not carried out because of caregiver refusal; Z68.35 Body mass index [BMI] 35.0-35.9, adult
CPT/HCPCS: 36415; 71260; 80048; 80053; 85025; 85610; 85730; 86140; 93005; 93971; 99285-25; A9270-GY; J1644; Q9967